=== PATIENT | male | born 1960 | race Caucasian/White ===

== ENCOUNTER 2017-05-07 04:15 | Emergency (ER) | payer OTHER ==
--- NOTE | 2017-05-07 06:30 | DIAGNOSTIC IMAGING REPORT ---
PROCEDURE: CT ABD/PELVIS WITH CONTRAST CLINICAL INDICATION: ABDOMINAL RIGIDITY TECHNIQUE: 125 ml of Isovue 300 were injected intravenously and axial images were obtained of the entire abdomen and pelvis with sagittal and coronal reformations. COMPARISON: None. FINDINGS: ABDOMEN: Lung base are clear. Normal heart size. 5 mm hypoenhancing lesion in the right hepatic lobe, indeterminate but likely a small cyst or hemangioma. 9 mm gallstone. Mild dilation of the intrahepatic ducts. Normal CBD, 3.5 mm. Pancreas, spleen (splenule), adrenal glands and right kidney are normal. 1.5 cm left renal upper pole cyst with peripheral calcification. Normal abdominal aorta. Stool throughout the large bowel. PELVIS: Normal appendix. Mildly enlarged prostate. Normal bladder. No pelvic mass, inflammatory changes or free fluid. Moderate degenerative changes of the distal lumbar spine. IMPRESSION: 1. Cholelithiasis 2. Obstipation 3. Left renal cyst 4. Results discussed with Dr. Do All CT scans at this facility use dose modulation, iterative reconstruction, and/or weight-based dosing when appropriate to reduce radiation dose to as low as reasonably achievable.
--- NOTE | 2017-05-07 06:36 | ED NURSING NOTES ---
Clinical Report - Nurses [facility] [place] [address] 05/07/2017 4:18 Patient: KIARA SHERMAN TRIAGE Triage time 04:28. Acuity: LEVEL 4. Chief Complaint: ABDOMINAL PAIN. 04:40 05/07/17. Alert. No acute distress. SEPSIS SCREEN: Sepsis Screen. Negative (no infection suspected/documented). --04:40 Patience Phillips R.N. 04:33 05/07/17. BP: 140/95 taken on the left arm, while sitting. HR: 61. RR: 16. O2 saturation: 97%. Temp: 97.8 F. Pain level now: 01/21. --04:40 Patience Phillips R.N. Weight: 90.7 kg stated. Height/Length: 74 inches Per Patient. BMI: 25.7. --04:39 Patience Phillips R.N. Medications None. --04:38 Patience Phillips R.N. Allergies None. --04:38 Patience Phillips R.N. History Arrived by private vehicle. Historian: patient and family. Accompanied by family. Primary physician (Dr Graciela Guerra). This is a new problem and onset was abrupt. Started while sleeping (tonight). ( Patient reports that he was camping tonight and woke up in the middle of the night with abdominal pain that "felt like a pulled muscle". Patient states he had a bowel movement and drank water "which usually helps abdominal pain but didnt tonight"). Last oral intake by patient was dinner yesterday. PAST MEDICAL HX: Immunizations: up-to-date. SOCIAL HX: Never smoker. Occasional alcohol use. No drug use. FALL RISK ASSESSMENT: Fall risk assessment completed. No fall risk identified. NUTRITIONAL RISK ASSESSMENT: The nutritional risk assessment revealed no deficiencies. FUNCTIONAL ASSESSMENT: Functional assessment: no impairments noted. LEARNING NEEDS ASSESSMENT: The learning needs assessment revealed no barriers. SKIN INTEGRITY ASSESSMENT: Skin integrity risk assessment completed. No skin integrity risk identified. --04:40 Patience Phillips R.N. PROBLEMS: no known problems. ADDITIONAL SURGERIES: no known surgeries. Interventions ID band on patient. To treatment room. --04:40 Patience Phillips R.N. PHYSICAL ASSESSMENT 04:41 05/07/17. Ambulatory to room. GENERAL / NEURO / PSYCH: Alert. Oriented X 4. Appears in no acute distress. HEENT: Mucous membranes are pink. RESPIRATORY: Respirations not labored. CVS: Capillary refill less than 2 seconds. GI / : Abdomen soft and nontender. Bowel sounds within normal limits. SKIN: Skin is warm and dry. --04:41 Patience Phillips R.N. NURSING PROGRESS NOTES 04:42 05/07/17. Pulse oximeter and NIBP monitor placed on patient. Patient gowned. Two patient identifiers checked. Call light placed in reach. Side rails up x 1. Bed placed in lowest position. Brakes of bed on. Patient ready for evaluation- chart flagged and notification provided. --04:42 Patience Phillips R.N. 04:53 05/07/2017 Site #1 started via IV in the right antecubital space with an 20g angiocath; one attempt. Blood drawn: rainbow set. Labeled in the presence of the patient and sent to the lab. Saline lock flushed with 5 mL saline. --05:18 Patience Phillips R.N. 05:03 05/07/2017 Started bag #1 1000 mL IV Fluids IV NS (Saline); bolus of 500 mL over 30 minute(s) then at 125 mL/hr over 4 hour(s) via site #1 via IV pump. Allergies verified and confirmed 5 rights. IV patency established. IV site checked: no pain, redness, or swelling. IV flushed thoroughly pre- and post-medication administration. Completed per protocol. --05:18 Patience Phillips R.N. 05:09 05/07/2017 Zofran (Ondansetron HCl) IVP 4 mg given over 2 minute(s) via site #1. Allergies verified and confirmed 5 rights. IV patency established. IV site checked: no pain, redness, or swelling. IV flushed thoroughly pre- and post-medication administration. IVP given by RN. --05:19 Patience Phillips R.N. 04:54. Patient ID band checked for patient name and birthdate: patient confirmed. Blood samples drawn from the right antecubital space by nurse per protocol ; labeled in presence of the patient: rainbow set. --05:21 Patience Phillips R.N. ( Prior to placing the patient's IV, pt notified RN that he has episodes of vasovagal syncope. The head of patient's bed was put back so that he was in a lying position. IV placed and blood drawn with no issue. When this RN went back into the patient's room 5 mins later to start fluids, pt asked if he could sit up again. After 2-3 minutes of sitting up, patient went pale and developed a blank stare. Patient was unresponsive to verbal stimulus and this RN did not feel a pulse. Help was called. HECTOR Lopez confirmed that patient was having vasovagal syncope. Patient slowly came to with a HR in the 30's. Patient has been placed on the traffic monitor specialist. ED MD came to room to see patient. Patient is slowly regaining speech, skin color and strength.). --05:26 Patience Phillips R.N. 05:44 05/07/2017 Dilaudid IV 0.5 mg (NOW) was refused by patient because pain is gone. Patience Phillips --05:44 Patience Phillips R.N. 05:48. Patient transported to CT by stretcher with tech. --05:54 Patience Phillips R.N. Patient informed about reason for wait and about plan of care. ( lights dimmed for comfort. Patient states "I'm feeling much better"). --06:19 Patience Phillips R.N. 06:48 05/07/2017 Site #1 removed upon discharge. Manual pressure and bandaid applied. --06:53 Patience Phillips R.N. DISPOSITION / DISCHARGE 06:50 05/07/17. No learning barriers present. Discharge instructions provided and reviewed with the patient and spouse. Reviewed warnings. Reviewed medication(s). Treatments reviewed. Reviewed referrals. Patient and spouse verbalized understanding. Written instructions provided in Kyrgyz. The patient was discharged home and accompanied by spouse. He left the Emergency Department ambulatory and via private vehicle. --06:50 Patience Phillips R.N. 06:10 05/07/17. BP: 119/72. HR: 61. RR: 12. O2 saturation: 97%. --06:50 Patience Phillips R.N. 06:48 05/07/17. Temp: deferred. Pain level now: 0/10. --06:52 Patience Phillips R.N. Locked/Released at 05/07/2017 6:53 by Patience Phillips R.N.
--- NOTE | 2017-05-07 06:36 | ED ORDER SUMMARY ---
..... Patient: NICOLA SHERMAN OrderSheet [facility] VisitID: [id number] [address] [place] [address] 56y, M Registration Date/Time: 05/07/2017 ORDER SHEET Weight: 90.7 kg (stated) Allergies: None GENERAL ORDERS: CBC w Diff Urgent (04:45 05/07/2017 Sol LIVINGSTON) (Collected 4:55 RMarsden R.N.) (5:19 RMarsden R.N.) CMP Urgent (04:05/07/2017 Sol LIVINGSTON) (Collected 4:55 RMarsden R.N.) (6:07 RMarsden R.N.) UA-Culture if indicated Urgent (:05/07/2017 Sol LIVINGSTON) (Collected 4:46 RMarsden R.N.) (5:19 RMarsden R.N.) Amylase Urgent (:05/07/2017 Sol LIVINGSTON) (Collected 4:55 RMarsden R.N.) (6:08 RMarsden R.N.) Lipase Urgent (:05/07/2017 Sol LIVINGSTON) (Collected 4:55 RMarsden R.N.) (6:08 RMarsden R.N.) NPO (:05/07/2017 Sol LIVINGSTON) (4:46 RMarsden R.N.) CT Abd/Pel w Cont (No) (See report) Urgent (05:05/07/2017 Sol LIVINGSTON) (Ack 5:10 Severo MORGAN Gas Collection System Operator) (6:07 RMarsden R.N.) MEDICATION ORDERS: IV FLUIDS: IV NS : initial bolus 500 mL (1000 mL/hr), then 125 mL/hr for 4h (NOW); Urgent (04:45 05/07/2017 Sol LIVINGSTON) (Ack 4:55 RMarsden R.N.) (5:18 RMarsden R.N.) Zofran IV 4 mg (NOW) (05:09 05/07/2017 Sol LIVINGSTON) (5:19 RMarsden R.N.) Dilaudid IV 0.5 mg (NOW) (05:37 05/07/2017 Sol LIVINGSTON) ([facility] 5:38 Harshad Solorio) ORDER SHEET NOTES: [Electronically signed by Patience Phillips R.N. (06:53 05/07/2017)] [Electronically signed by Nicola Do MD (16:46 05/27/2017)] [Electronically locked/signed by Patience Phillips R.N. (06:53 05/07/2017)]
--- NOTE | 2017-05-07 06:36 | ED CLINICAL REPORT ---
Clinical Report - Physicians/Mid Levels [facility] [address] [place] [address] 05/07/2017 4:18 Patient: NICOLA SHERMAN Time Seen: 04:44. Arrived- By private vehicle. Historian- patient. HISTORY OF PRESENT ILLNESS Chief Complaint: ABDOMINAL PAIN. At its maximum, severity described as mild. When seen in the E.D., it was almost gone. It is described as diffuse. No radiation. It is described as generalized in location and located in the right upper quadrant. This started last night and is still present. It was abrupt in onset and has been constant and waxing/waning. No nausea, loss of appetite, vomiting or diarrhea. (he was camping tonight and woke up in the middle of the night with abdominal pain that "felt like a pulled muscle". Patient states he had a bowel movement and drank water "which usually helps abdominal pain but didnt tonight"). REVIEW OF SYSTEMS Last bowel movement: recently. No chills, fever, sweats, calf pain or chest pain. No cough, difficulty breathing, pedal edema, palpitations or black stools. No bloody stools, constipation, diarrhea, nausea or vomiting. No urinary problems. All systems otherwise negative, except as recorded above. PAST HISTORY Surgeries: Prior abdominal surgery. SOCIAL HISTORY Never smoker. Occasional alcohol use. No drug use. FAMILY HISTORY Denies family medical history. ADDITIONAL NOTES The nursing notes have been reviewed. PHYSICAL EXAM Vital Signs: 05/07/2017 04:33 BP: 140/95. HR: 61. RR: 16. O2 saturation: 97%. Temp: 97.8 F. Pain level now: 310. Have been reviewed. Appearance: Alert. No acute distress. Eyes: Pupils equal, round and reactive to light. ENT: Pharynx normal. Neck: Normal inspection. Neck supple. CVS: Normal heart rate and rhythm. Heart sounds normal. Respiratory: No respiratory distress. Breath sounds normal. Abdomen: Soft and nontender. Bowel sounds normal. No organomegaly. No mass. Back: Normal inspection. No CVA tenderness. Skin: Skin warm and dry. Normal skin color. No rash. Normal skin turgor. Extremities: Extremities exhibit normal ROM. No calf tenderness. No lower extremity edema. LABS, X-RAYS, AND EKG Abdominal CT: IMPRESSION: 1. Cholelithiasis 2. Obstipation 3. Left renal cyst. The study was interpreted by the radiologist and contemporaneously by me. Laboratory Tests: UA-Culture if indicated: (CARISSA: 05/07/2017 04:43) ( [facility] 05/07/2017 04:59) Final results Test Result Flag Units (Reference) URINE COLOR YELLOW URINE APPEARANCE CLEAR URINE GLUCOSE NEGATIVE (NEGATIVE) URINE BILIRUBIN NEGATIVE (NEGATIVE) URINE KETONE NEGATIVE (NEGATIVE) URINE SPECIFIC GRAVITY 1.025 (1.010-1.030) URINE PH 5.5 (5.0-8.0) URINE PROTEIN NEGATIVE (NEGATIVE) URINE UROBILINOGEN 0.2 EU/dL (0.2-1.0) URINE NITRITE NEGATIVE (NEGATIVE) URINE BLOOD NEGATIVE (NEGATIVE) URINE LEUK ESTERASE NEGATIVE (NEGATIVE) URINE RBC 0-1 rbc/hpf (0-1) URINE WBC 0-1 wbc/hpf (0-1) URINE EPITHELIAL CELLS 0-1 EPI/hpf (0-5) URINE BACTERIA NONE SEEN (NONE SEEN) URINE COMMENT CULT NOT INDICATED URINE CULTURES ARE SET-UP BASED ON THE FOLLOWING CRITERIA:POSITIVE NITRITEPOSITIVE LEUKOCYTE ESTERASEGREATER THAN 10 WHITE BLOOD CELLSMODERATE (2+) OR GREATER BACTERIA CBC w Diff: (CARISSA: 05/07/2017 05:04) ( [facility] 05/07/2017 05:18) Final results Test Result Flag Units (Reference) WHITE BLOOD COUNT 8.2 K/uL (4.5-11.5) RED BLOOD COUNT 4.66 M/uL (4.50-5.90) HEMOGLOBIN 14.5 gm/dL (13.5-17.5) HEMATOCRIT 44.3 % (41.0-53.0) MEAN CELL VOLUME 95 fL (80-100) MEAN CORPUSCULAR HGB 31 pg (26-34) MEAN CORPUSCULAR HGB CONC 33 g/dL (31-37) RED CELL DISTRIBUTION WIDTH 12.5 % (11.6-14.8) PLATELET COUNT 252 K/uL (150-400) NEUTROPHIL % 69.7 % (50-75) LYMPH % 19.8 L % (25-40) MONO % 8.6 % (3-14) EOSINOPHIL % 1.7 % (0-4) BASOPHIL % 0.2 % (0-2) CMP: (CARISSA: 05/07/2017 05:04) ( MsgRcvd 05/07/2017 05:24) Final results Test Result Flag Units (Reference) GLUCOSE 92 mg/dL (70-110) BUN 22 H mg/dL (7-18) CREATININE 0.9 mg/dL (0.6-1.3) Estimated GFR >60 mL/min Estimated GFR- >60 mL/min Note: Persistent reduction over 3 months in eGFR<60 mL/min/1.73 m2 defines CKD. Patients with eGFR values>=60 mL/min/1.73 m2 may also have CKD if evidence ofpersistent proteinuria. Additional information may be foundat www.kidney.org. SODIUM 141 mmol/L (136-145) POTASSIUM 3.7 mmol/L (3.5-5.1) CHLORIDE 105 mmol/L (98-107) CARBON DIOXIDE 26 mmol/L (21-32) CALCIUM 8.6 mg/dL (8.5-10.1) TOTAL PROTEIN 6.9 g/dL (6.4-8.2) ALBUMIN 3.6 g/dL (3.3-5.0) BILIRUBIN, TOTAL 0.4 mg/dL (0.0-1.0) ALKALINE PHOSPHATASE 77 U/L (46-116) AST (SGOT) 25 U/L (15-37) ALT (SGPT) 34 U/L (12-78) LIPASE 205 U/L (73-393) AMYLASE 87 U/L (25-115) . PROGRESS AND PROCEDURES Patient/family counseled. Old medical records ordered. Old records unavailable. Disposition: Discharged. Condition: stable. CLINICAL IMPRESSION Abdominal pain of undetermined cause. Cholelithiasis. Constipation INSTRUCTIONS No driving or operating machinery while taking medication. Sedative medication was given during your visit. Drink plenty of fluids. Avoid. Warnings: Further evaluation is necessary. GENERAL WARNINGS: Return or contact your physician immediately if your condition worsens or changes unexpectedly, if not improving as expected, or if other problems arise. OTC Medications: Colace capsules (available over the counter): take according to label instructions. Follow-up: Follow up with your doctor Tuesday in two days. Call for an appointment. Understanding of the discharge instructions verbalized by patient and family. Follow-up with: Wilfredo Kimball MD, General Surgeon, , [facility], [address] [place] [address] Follow up. Call for the next available appointment. (Electronically signed by Nicola Do MD 05/27/2017 16:46)
--- NOTE | 2017-05-07 06:36 | ED ORDER SUMMARY ---
..... Patient: NICOLA SHERMAN OrderSheet [facility] VisitID: [id number] [address] [place] [address] 56y, M Registration Date/Time: 05/07/2017 ORDER SHEET Weight: 90.7 kg (stated) Allergies: None GENERAL ORDERS: CBC w Diff Urgent (04:45 05/07/2017 Sol LIVINGSTON) (Collected 4:55 RMarsden R.N.) (5:19 RMarsden R.N.) CMP Urgent (04:05/07/2017 Sol LIVINGSTON) (Collected 4:55 RMarsden R.N.) (6:07 RMarsden R.N.) UA-Culture if indicated Urgent (:05/07/2017 Sol LIVINGSTON) (Collected 4:46 RMarsden R.N.) (5:19 RMarsden R.N.) Amylase Urgent (:05/07/2017 Sol LIVINGSTON) (Collected 4:55 RMarsden R.N.) (6:08 RMarsden R.N.) Lipase Urgent (:05/07/2017 Sol LIVINGSTON) (Collected 4:55 RMarsden R.N.) (6:08 RMarsden R.N.) NPO (:05/07/2017 Sol LIVINGSTON) (4:46 RMarsden R.N.) CT Abd/Pel w Cont (No) (See report) Urgent (05:05/07/2017 Sol LIVINGSTON) (Ack 5:10 Severo MORGAN Termite Control Servicer) (6:07 RMarsden R.N.) MEDICATION ORDERS: IV FLUIDS: IV NS : initial bolus 500 mL (1000 mL/hr), then 125 mL/hr for 4h (NOW); Urgent (04:45 05/07/2017 Sol LIVINGSTON) (Ack 4:55 RMarsden R.N.) (5:18 RMarsden R.N.) Zofran IV 4 mg (NOW) (05:09 05/07/2017 Sol LIVINGSTON) (5:19 RMarsden R.N.) Dilaudid IV 0.5 mg (NOW) (05:37 05/07/2017 Sol LIVINGSTON) ([facility] 5:38 Harshad Solorio) ORDER SHEET NOTES: [Electronically signed by Patience Phillips R.N. (06:53 05/07/2017)] [Electronically signed by Nicola Do MD (16:46 05/27/2017)] [Electronically locked/signed by Patience Phillips R.N. (06:53 05/07/2017)]
--- NOTE | 2017-05-27 16:46 | ED DISCHARGE INSTRUCTIONS ---
Patient: NICOLA SHERMAN General Instructions [facility] VisitID: [id number] [address] [place] [address] 56y, M Registration Date/Time: 05/07/2017 Abdominal pain of undetermined cause. Cholelithiasis. Constipation INSTRUCTIONS No driving or operating machinery while taking medication. Sedative medication was given during your visit. Drink plenty of fluids. Avoid. Warnings: Further evaluation is necessary. GENERAL WARNINGS: Return or contact your physician immediately if your condition worsens or changes unexpectedly, if not improving as expected, or if other problems arise. OTC Medications: Colace capsules (available over the counter): take according to label instructions. Follow-up: Follow up with your doctor Tuesday in two days. Call for an appointment. Understanding of the discharge instructions verbalized by patient and family. Follow-up with: Wilfredo Kimball MD, General Surgeon, , [facility], [address] [place] [address] Follow up. Call for the next available appointment. ADDITIONAL INFORMATION Abdominal Pain,Uncertain Cause [Male] Based on your visit today, the exact cause of your abdominalpain is not clear. Your exam and tests do not indicate a dangerous cause at this time. However, the signs of a serious problem may take more time to appear. Although your evaluation was reassuring today, sometimes early in the course of many conditions, exam and lab tests can appear normal. Therefore, it is important for you to watch for any new symptoms or worsening of your condition. Causes It may not be obvious what caused your symptoms. Pay attention to things that do seem to make your symptoms worse or better and discuss this with your doctor when you follow up. Diagnosis The evaluation of abdominal pain in the emergency department may onlyrequire an exam by the doctor or it may include blood, urine or imaging studies, depending on many factors. Sometimes exams and tests can identify a cause but in many cases, a clear cause is not found. Further testing at follow up visits may help to suggest a clear diagnosis. Home Care Rest as much as possible until your next exam. Try to avoid any medications (unless otherwise directed by your doctor), foods, activities, or other factors that you may have contributed to your symptoms. Try to eat foods that you know that you have tolerated well in the past. Certain diets may be recommended for some conditions that cause abdominal pain. However, since the cause of your symptoms may not be clear, discuss your diet more with your primary care provider or specialist for further recommendations. Eating several small meals per day as opposed to 2 or 3 larger meals may help. Monitor closely for anything that may make your symptoms worse or better. Pay close attention to symptoms below that may indicate worsening of your condition. Follow Up and Precautions See your doctoras instructed or sooneror if your symptoms are not improving.In some cases, you may need more testing. When to Seek Medical Attention Contact your doctor or see medical attention ifany of the following occur: Pain is becoming worse You are unable to take your medications due to excessive vomiting Swelling of the abdomen Fever of 100.4F (38C) or higher, or as directed by your health care provider Blood in vomit or bowel movements (dark red or black color) Jaundice (yellow color of eyes and skin) New onset of weakness, dizziness or fainting New onset of chest, arm, back, neck or jaw pain GallstonesWith Biliary Colic [Confirmed Dx] The abdominal pain that you have today is due to spasm of the gallbladder. The gallbladder is a small sac under the liver which stores and releases bile. Bile is a fluid that aids in the digestion of fat. A gallstone may form inside the gallbladder and block the flow of bile fluid. This causes mild to severe crampy pain in the mid or right upper abdomen with nausea and vomiting. Home Care: Rest in bed and follow a clear liquid diet until feeling better. If pain or nausea medicine was given to help with your symptoms, take these as directed. Fat in your diet makes the gallbladder contract and may cause increased pain. Therefore, avoid fat in your diet over the next two days and follow a low-fat diet after that. If you are overweight, a low-fat diet will also help you lose weight. Follow Up with your doctor. There is a 50% chance that you will have another episode of pain from your gallstones during the next 2 years. Removal of the gallbladder is the treatment of choice to prevent this. Schedule an appointment with your own doctor during the next week to discuss the treatment options. Get Prompt Medical Attention if any of the following occur: Pain gets worse or moves to the right lower abdomen Repeated vomiting Swelling of the abdomen Pain lasts over 6 hours Fever of 100.4F (38C) or higher, or as directed by your healthcare provider Weakness, dizziness or fainting Dark urine or light colored stools Yellow color of the skin or eyes Chest, arm, back, neck or jaw pain Constipation (Adult) Constipation is bowel movements that are less frequent than usual. Stools often become very hard and difficult to pass. This may lead to abdominal pain and bloating. It may also cause painful bowel movements. Constipation may be due to a diet thats low in fiber. Some medications, especially pain medications, can also cause it. Constipation may be treated with enemas, suppositories, laxatives or stool softeners. Your doctor will advise you which will work best for you. Follow the advice below to help avoid this problem in the future. Home Care Medication: Take any medicines as directed. Some laxatives are safe only for occasional use. Others can be taken on a regular basis. Talk to your doctor or pharmacist if you have questions. General Care: Prescription pain medications can cause constipation. If you are prescribed pain medications, ask the doctor whether you should also take a stool softener. A diet high in fiber with plenty of fluids helps to maintain regular, soft bowel movements. The following foods are good sources of dietary fiber: Cereals and breads: Whole grain cereal with bran, oatmeal, rolled oats, whole grain breads Fruits: All fruits (fresh and dried), raisins, prunes, apricots, berries, figs Vegetables: Any fresh vegetables, especially peas, broccoli, brussels sprouts, winter squash, green beans, cauliflower, medina beans, carrots Other: Popcorn, brown rice Drink plenty of water when you increase the amount of fiber you eat. Follow Up with your doctor or return to this facility if symptoms do not improve in the next few days. You may require further tests or a referral to a specialist. Get Prompt Medical Attention if any of the following occur: Fever over 100.4F (38C) Failure to resume normal bowel movements Increasing abdominal or back pain Nausea or vomiting Abdominal swelling Blood in the stool Weakness, dizziness or fainting Unexpected vaginal bleeding High Fiber Diet Fiber is present in all fruits, vegetables, cereals and grains. Fiber passes through the body undigested. A high fiber diet helps food move through the intestinal tract. The added bulk is helpful in preventing constipation. In people with diverticulosis it serves to clean out the pouches along the colon wall while preventing new ones from forming. A high fiber diet also reduces the risk of colon cancer, decreases blood cholesterol and prevents high blood sugar in people with diabetes. The foods listed below are high in fiber and should be included in your diet. If you are not used to high fiber foods, start with 1 or 2 foods from this list. Every 3-4 days add a new one to your diet until you are eating 4 high fiber foods per day. This should give you 20-35 Gm of fiber/day. It is also important to drink a lot of water when you are on this diet (6-8 glasses a day). Water causes the fiber to swell and increases the benefit. Foods High In Dietary Fiber: BREADS: Made with 100% whole wheat flour; viviane, wheat or rye crackers; tortillas, bran muffins CEREALS: Whole grain cereal with bran (Chex, Raisin Bran, Ferris Bran), oatmeal, rolled oats, granola, wheat flakes, brown rice NUTS: Any nuts FRUITS: All fresh fruits along with edible skins, (bananas, citrus fruit, mangoes, pears, prunes, raisins, apples, pineapple, apricot, melon, jams and marmalades), fruit juices (especially prune juice) VEGETABLES: All types, preferably raw or lightly cooked: especially, celery, eggplant, potatoes,spinach, broccoli, brussel sprouts, winter squash, carrots, cauliflower, soybeans, lentils, fresh and dried beans of all kinds OTHER: Popcorn, any spices Docusate Sodium Oral tablet What is this medicine? DOCUSATE (doc CUE sayt) is stool softener. It helps prevent constipation and straining or discomfort associated with hard or dry stools. How should I use this medicine? Take this medicine by mouth with a glass of water. Follow the directions on the label. Take your doses at regular intervals. Do not take your medicine more often than directed. Talk to your frame cleaner regarding the use of this medicine in children. While this medicine may be prescribed for children as young as 2 years for selected conditions, precautions do apply. What side effects may I notice from receiving this medicine? Side effects that you should report to your doctor or health pet care worker as soon as possible: allergic reactions like skin rash, itching or hives, swelling of the face, lips, or tongue Side effects that usually do not require medical attention (report to your doctor or health pet care worker if they continue or are bothersome): diarrhea stomach cramps throat irritation What may interact with this medicine? mineral oil What if I miss a dose? If you miss a dose, take it as soon as you can. If it is almost time for your next dose, take only that dose. Do not take double or extra doses. Where should I keep my medicine? Keep out of the reach of children. Store at room temperature between 15 and 30 degrees C (59 and 86 degrees F). Throw away any unused medicine after the expiration date. What should I tell my health care provider before I take this medicine? They need to know if you have any of these conditions: nausea or vomiting severe constipation stomach pain sudden change in bowel habit lasting more than 2 weeks an unusual or allergic reaction to docusate, other medicines, foods, dyes, or preservatives or trying to get breast-feeding What should I watch for while using this medicine? Do not use for more than one week without advice from your doctor or health pet care worker. If your constipation returns, check with your doctor or health pet care worker. Drink plenty of water while taking this medicine. Drinking water helps decrease constipation. Stop using this medicine and contact your doctor or health pet care worker if you experience any rectal bleeding or do not have a bowel movement after use. These could be signs of a more serious condition. You have been given the following additional information: Abdominal Pain, Unknown Cause, (Male) Biliary Colic With Gallstone (Confirmed) Constipation (Adult) Diet, High Fiber Docusate Sodium Oral tablet No driving or operating machinery while taking medication. Sedative medication was given during your visit. (Electronically signed by Nicola Do MD 05/27/2017 16:46)
--- NOTE | 2017-05-27 16:46 | ED MAR SUMMARY ---
..... Medication Administration Record [facility] [address] [place] [address] Patient: KIARA SHERMAN Visit ID: [id number] 56y, M Weight: 90.7 kg Height/Length: 74 in BMI: 25.7 ALLERGIES: None Start 05:03 05/07/2017 Patience Phillips R.N. Medication Administered: IV NS (SALINE), Dose: IV Fluids over 4 hour(s), Rate: 125 mL/hr, Bolus: 500 mL over 30 minute(s), Dispensed: 1000 mL bag, Site: #1 right AC. Medication Ordered: IV NS : initial bolus 500 mL (1000 mL/hr), then 125 mL/hr for 4h (NOW); Urgent. Given 05:09 05/07/2017 Patience Phillips R.N. Medication Administered: ZOFRAN [IVP] (ONDANSETRON HCL), Dose: 4 mg IVP over 2 minute(s), Site: #1 right AC. Medication Ordered: Zofran IV 4 mg (NOW).
--- NOTE | 2017-05-27 16:46 | ED MAR SUMMARY ---
..... Medication Administration Record [facility] [address] [place] [address] Patient: KIARA SHERMAN Visit ID: [id number] 56y, M Weight: 90.7 kg Height/Length: 74 in BMI: 25.7 ALLERGIES: None Start 05:03 05/07/2017 Patience Phillips R.N. Medication Administered: IV NS (SALINE), Dose: IV Fluids over 4 hour(s), Rate: 125 mL/hr, Bolus: 500 mL over 30 minute(s), Dispensed: 1000 mL bag, Site: #1 right AC. Medication Ordered: IV NS : initial bolus 500 mL (1000 mL/hr), then 125 mL/hr for 4h (NOW); Urgent. Given 05:09 05/07/2017 Patience Phillips R.N. Medication Administered: ZOFRAN [IVP] (ONDANSETRON HCL), Dose: 4 mg IVP over 2 minute(s), Site: #1 right AC. Medication Ordered: Zofran IV 4 mg (NOW).
--- NOTE | 2017-05-27 16:46 | ED DISCHARGE INSTRUCTIONS ---
Patient: NICOLA SHERMAN General Instructions [facility] VisitID: [id number] [address] [place] [address] 56y, M Registration Date/Time: 05/07/2017 Abdominal pain of undetermined cause. Cholelithiasis. Constipation INSTRUCTIONS No driving or operating machinery while taking medication. Sedative medication was given during your visit. Drink plenty of fluids. Avoid. Warnings: Further evaluation is necessary. GENERAL WARNINGS: Return or contact your physician immediately if your condition worsens or changes unexpectedly, if not improving as expected, or if other problems arise. OTC Medications: Colace capsules (available over the counter): take according to label instructions. Follow-up: Follow up with your doctor Tuesday in two days. Call for an appointment. Understanding of the discharge instructions verbalized by patient and family. Follow-up with: Wilfredo Kimball MD, General Surgeon, , [facility], [address] [place] [address] Follow up. Call for the next available appointment. ADDITIONAL INFORMATION Abdominal Pain,Uncertain Cause [Male] Based on your visit today, the exact cause of your abdominalpain is not clear. Your exam and tests do not indicate a dangerous cause at this time. However, the signs of a serious problem may take more time to appear. Although your evaluation was reassuring today, sometimes early in the course of many conditions, exam and lab tests can appear normal. Therefore, it is important for you to watch for any new symptoms or worsening of your condition. Causes It may not be obvious what caused your symptoms. Pay attention to things that do seem to make your symptoms worse or better and discuss this with your doctor when you follow up. Diagnosis The evaluation of abdominal pain in the emergency department may onlyrequire an exam by the doctor or it may include blood, urine or imaging studies, depending on many factors. Sometimes exams and tests can identify a cause but in many cases, a clear cause is not found. Further testing at follow up visits may help to suggest a clear diagnosis. Home Care Rest as much as possible until your next exam. Try to avoid any medications (unless otherwise directed by your doctor), foods, activities, or other factors that you may have contributed to your symptoms. Try to eat foods that you know that you have tolerated well in the past. Certain diets may be recommended for some conditions that cause abdominal pain. However, since the cause of your symptoms may not be clear, discuss your diet more with your primary care provider or specialist for further recommendations. Eating several small meals per day as opposed to 2 or 3 larger meals may help. Monitor closely for anything that may make your symptoms worse or better. Pay close attention to symptoms below that may indicate worsening of your condition. Follow Up and Precautions See your doctoras instructed or sooneror if your symptoms are not improving.In some cases, you may need more testing. When to Seek Medical Attention Contact your doctor or see medical attention ifany of the following occur: Pain is becoming worse You are unable to take your medications due to excessive vomiting Swelling of the abdomen Fever of 100.4F (38C) or higher, or as directed by your health care provider Blood in vomit or bowel movements (dark red or black color) Jaundice (yellow color of eyes and skin) New onset of weakness, dizziness or fainting New onset of chest, arm, back, neck or jaw pain GallstonesWith Biliary Colic [Confirmed Dx] The abdominal pain that you have today is due to spasm of the gallbladder. The gallbladder is a small sac under the liver which stores and releases bile. Bile is a fluid that aids in the digestion of fat. A gallstone may form inside the gallbladder and block the flow of bile fluid. This causes mild to severe crampy pain in the mid or right upper abdomen with nausea and vomiting. Home Care: Rest in bed and follow a clear liquid diet until feeling better. If pain or nausea medicine was given to help with your symptoms, take these as directed. Fat in your diet makes the gallbladder contract and may cause increased pain. Therefore, avoid fat in your diet over the next two days and follow a low-fat diet after that. If you are overweight, a low-fat diet will also help you lose weight. Follow Up with your doctor. There is a 50% chance that you will have another episode of pain from your gallstones during the next 2 years. Removal of the gallbladder is the treatment of choice to prevent this. Schedule an appointment with your own doctor during the next week to discuss the treatment options. Get Prompt Medical Attention if any of the following occur: Pain gets worse or moves to the right lower abdomen Repeated vomiting Swelling of the abdomen Pain lasts over 6 hours Fever of 100.4F (38C) or higher, or as directed by your healthcare provider Weakness, dizziness or fainting Dark urine or light colored stools Yellow color of the skin or eyes Chest, arm, back, neck or jaw pain Constipation (Adult) Constipation is bowel movements that are less frequent than usual. Stools often become very hard and difficult to pass. This may lead to abdominal pain and bloating. It may also cause painful bowel movements. Constipation may be due to a diet thats low in fiber. Some medications, especially pain medications, can also cause it. Constipation may be treated with enemas, suppositories, laxatives or stool softeners. Your doctor will advise you which will work best for you. Follow the advice below to help avoid this problem in the future. Home Care Medication: Take any medicines as directed. Some laxatives are safe only for occasional use. Others can be taken on a regular basis. Talk to your doctor or pharmacist if you have questions. General Care: Prescription pain medications can cause constipation. If you are prescribed pain medications, ask the doctor whether you should also take a stool softener. A diet high in fiber with plenty of fluids helps to maintain regular, soft bowel movements. The following foods are good sources of dietary fiber: Cereals and breads: Whole grain cereal with bran, oatmeal, rolled oats, whole grain breads Fruits: All fruits (fresh and dried), raisins, prunes, apricots, berries, figs Vegetables: Any fresh vegetables, especially peas, broccoli, brussels sprouts, winter squash, green beans, cauliflower, medina beans, carrots Other: Popcorn, brown rice Drink plenty of water when you increase the amount of fiber you eat. Follow Up with your doctor or return to this facility if symptoms do not improve in the next few days. You may require further tests or a referral to a specialist. Get Prompt Medical Attention if any of the following occur: Fever over 100.4F (38C) Failure to resume normal bowel movements Increasing abdominal or back pain Nausea or vomiting Abdominal swelling Blood in the stool Weakness, dizziness or fainting Unexpected vaginal bleeding High Fiber Diet Fiber is present in all fruits, vegetables, cereals and grains. Fiber passes through the body undigested. A high fiber diet helps food move through the intestinal tract. The added bulk is helpful in preventing constipation. In people with diverticulosis it serves to clean out the pouches along the colon wall while preventing new ones from forming. A high fiber diet also reduces the risk of colon cancer, decreases blood cholesterol and prevents high blood sugar in people with diabetes. The foods listed below are high in fiber and should be included in your diet. If you are not used to high fiber foods, start with 1 or 2 foods from this list. Every 3-4 days add a new one to your diet until you are eating 4 high fiber foods per day. This should give you 20-35 Gm of fiber/day. It is also important to drink a lot of water when you are on this diet (6-8 glasses a day). Water causes the fiber to swell and increases the benefit. Foods High In Dietary Fiber: BREADS: Made with 100% whole wheat flour; viviane, wheat or rye crackers; tortillas, bran muffins CEREALS: Whole grain cereal with bran (Chex, Raisin Bran, Florence Bran), oatmeal, rolled oats, granola, wheat flakes, brown rice NUTS: Any nuts FRUITS: All fresh fruits along with edible skins, (bananas, citrus fruit, mangoes, pears, prunes, raisins, apples, pineapple, apricot, melon, jams and marmalades), fruit juices (especially prune juice) VEGETABLES: All types, preferably raw or lightly cooked: especially, celery, eggplant, potatoes,spinach, broccoli, brussel sprouts, winter squash, carrots, cauliflower, soybeans, lentils, fresh and dried beans of all kinds OTHER: Popcorn, any spices Docusate Sodium Oral tablet What is this medicine? DOCUSATE (doc CUE sayt) is stool softener. It helps prevent constipation and straining or discomfort associated with hard or dry stools. How should I use this medicine? Take this medicine by mouth with a glass of water. Follow the directions on the label. Take your doses at regular intervals. Do not take your medicine more often than directed. Talk to your mortgage loan processor regarding the use of this medicine in children. While this medicine may be prescribed for children as young as 2 years for selected conditions, precautions do apply. What side effects may I notice from receiving this medicine? Side effects that you should report to your doctor or health hospice care consultant as soon as possible: allergic reactions like skin rash, itching or hives, swelling of the face, lips, or tongue Side effects that usually do not require medical attention (report to your doctor or health hospice care consultant if they continue or are bothersome): diarrhea stomach cramps throat irritation What may interact with this medicine? mineral oil What if I miss a dose? If you miss a dose, take it as soon as you can. If it is almost time for your next dose, take only that dose. Do not take double or extra doses. Where should I keep my medicine? Keep out of the reach of children. Store at room temperature between 15 and 30 degrees C (59 and 86 degrees F). Throw away any unused medicine after the expiration date. What should I tell my health care provider before I take this medicine? They need to know if you have any of these conditions: nausea or vomiting severe constipation stomach pain sudden change in bowel habit lasting more than 2 weeks an unusual or allergic reaction to docusate, other medicines, foods, dyes, or preservatives or trying to get breast-feeding What should I watch for while using this medicine? Do not use for more than one week without advice from your doctor or health hospice care consultant. If your constipation returns, check with your doctor or health hospice care consultant. Drink plenty of water while taking this medicine. Drinking water helps decrease constipation. Stop using this medicine and contact your doctor or health hospice care consultant if you experience any rectal bleeding or do not have a bowel movement after use. These could be signs of a more serious condition. You have been given the following additional information: Abdominal Pain, Unknown Cause, (Male) Biliary Colic With Gallstone (Confirmed) Constipation (Adult) Diet, High Fiber Docusate Sodium Oral tablet No driving or operating machinery while taking medication. Sedative medication was given during your visit. (Electronically signed by Nicola Do MD 05/27/2017 16:46)
--- NOTE | 2017-05-27 16:46 | ED MED RECONCILIATION SUMMARY ---
Patient: KIARA SHERMAN Medication Reconciliation Report [facility] VisitID: [id number] [address] [place] [address] 56y, M Registration Date/Time: 05/07/2017 Weight: 90.7 kg Height/Length: 74 in. BMI: 25.7 ALLERGIES: None The patient's Home Medications are listed below: NONE. The source(s) of the original Home Medication information: Not obtained. The following Medications were given to the patient in the Emergency Department: IV NS IV Fluids bolus 500 mL over 30 minute(s), then 125 mL/hr, administered: 05/07/2017 5:03:00 AM Zofran [IVP] IVP 4 mg, administered: 05/07/2017 5:09:00 AM The following Medications were prescribed to the patient: Colace capsules (available over the counter): take according to label instructions. -- Kiara Do MD
--- NOTE | 2017-05-27 16:46 | ED MED RECONCILIATION SUMMARY ---
Patient: KIARA SHERMAN Medication Reconciliation Report [facility] VisitID: [id number] [address] [place] [address] 56y, M Registration Date/Time: 05/07/2017 Weight: 90.7 kg Height/Length: 74 in. BMI: 25.7 ALLERGIES: None The patient's Home Medications are listed below: NONE. The source(s) of the original Home Medication information: Not obtained. The following Medications were given to the patient in the Emergency Department: IV NS IV Fluids bolus 500 mL over 30 minute(s), then 125 mL/hr, administered: 05/07/2017 5:03:00 AM Zofran [IVP] IVP 4 mg, administered: 05/07/2017 5:09:00 AM The following Medications were prescribed to the patient: Colace capsules (available over the counter): take according to label instructions. -- Kiara Do MD
== END 2017-05-07 06:50 | disposition home or self-care (01) ==
LOC: ED SRH 04:15
DX: R10.11 Right upper quadrant pain (principal); K80.20 Calculus of gallbladder without cholecystitis without obstruction; R55 Syncope and collapse; K59.00 Constipation, unspecified
CPT/HCPCS: 90004; 90100; 92235; 92530; 95059